=== PATIENT | female | born 1945 | race African-American/Black ===

== ENCOUNTER 2019-07-25 16:41 | Emergency (ER) | payer OTHER ==
[2019-07-25 17:40] VITALS: TEMP 97.9; BMI 39.3
--- NOTE | 2019-07-25 18:04 | PDOC ---
History of Present Illness - General Chief Complaint: Blood Pressure Problem Stated Complaint: HYPERTENSION/HEADACHE Time Seen by Provider: 07/25/19 18:04 - History of Present Illness Initial Comments: 07/25/19 18:19 73 yo PMH HTN, HLD, CKD not on dialysis, rectal CA and rectal prolapse s/p resection in February 2019 w/ stoma, cataract surgery of left eye 6 years ago, presenting with elevated blood pressure. Reports that she went to see her GI on Saturday for some abdominal discomfort, discovered that her BP was elevated there. Afterwards, she began developing "all around my head" headache, 4/10, blurrier vision than her baseline. Developed nausea without vomiting today, and grew scared about a potential stroke, driving her to come to the ED. Denies CP, SOB, abd pain, fevers/chills. Past History - Past Medical History Allergies/Adverse Reactions: Allergies Allergy/AdvReac Type Severity Reaction Status Date / Time No Known Allergies Allergy Verified 07/25/19 17:37 - Psycho Social/Smoking Cessation Hx Smoking History: Never smoked Information on smoking cessation initiated: No Hx Alcohol Use: No Drug/Substance Use Hx: No Review of Systems - Review of Systems Comments:: 07/25/19 18:53 GENERAL/CONSTITUTIONAL: denies fever, chills, diaphoresis, generalized weakness , malaise, loss of appetite, weight change HEAD, EYES, EARS, NOSE AND THROAT: endorses increased blurry vision. Denies rhinorrhea, nasal congestion, throat pain, throat swelling, difficulty swallowing, mouth swelling, ear pain, eye pain NEUROLOGIC: endorses headache. Denies focal weakness or paresthesias, dizziness , unsteady gait, seizure, mental status changes, bladder or bowel incontinence CARDIOVASCULAR: denies chest pain, syncope, palpitations, irregular heart rate, lightheadedness, peripheral edema RESPIRATORY: denies cough, shortness of breath, dyspnea with exertion, orthopnea , wheezing, stridor, hemoptysis GASTROINTESTINAL: endorses nausea without vomiting. Denies abdominal pain, abdominal distension, diarrhea, constipation, melena, hematochezia GENITOURINARY: denies dysuria, frequency, urgency, hesitancy, hematuria, flank pain, genital pain MUSCULOSKELETAL: denies myalgia, arthralgia, joint swelling, back pain, neck pain SKIN: denies rash, itching, pallor HEMATOLOGIC/IMMUNOLOGIC: denies easy bleeding, easy bruising, lymphadenopathy, frequent infections ENDOCRINE: denies unexplained weight gain, unexplained weight loss, heat intolerance, cold intolerance PSYCHIATRIC: denies anxiety, depression, suicidal or homicidal ideation, hallucinations *Physical Exam - Vital Signs Last Vital Signs Temp Pulse Resp BP Pulse Ox 97.9 F 71 16 190/80 H 99 07/25/19 17:15 07/25/19 17:15 07/25/19 17:15 07/25/19 17:15 07/25/19 17:15 - Physical Exam 07/25/19 18:54 Gen: well-developed, well-nourished, NAD Neuro: AAOX4, CN II-XII intact, FTN intact, EOMI, PERRLA, 5/5 strength, SILT HEENT: atraumatic, normocephalic Neck: trachea midline, supple CV: regular rate, regular rhythm, aortic stenosis murmur Pulm: CTA b/l, no wheezing Abd: soft, non-distended, non-tender, stoma in place with normal brown stool MSK: full ROM, intact pulses Extr: no edema, no deformities Skin: warm, dry ED Treatment Course - LABORATORY CBC & Chemistry Diagram: 07/25/19 18:50 07/25/19 18:50 Medical Decision Making - Medical Decision Making 07/25/19 18:52 Elevated BP, no CP or SOB. R/o ACS and brain bleed. Likely dc for further management of blood pressure. - CBC, CMP - EKG, trop - CXR - Head CT 07/25/19 19:52 EKG normal sinus at 61 bpm, poor baseline quality, ND 184, QRS 92, QTc 436 07/25/19 20:05 Repeat BP 160/73 without intervention. 07/25/19 20:30 CXR without acute pathology. 07/25/19 20:43 Cr 1.8, most recent Cr from 02/08/2019 was 1.6. On 02/06/2019, was 2.2. Around her baseline. 07/25/19 21:27 CT head without bleed. Will dc for further outpatient management. Discharge - Discharge Information Problems reviewed: Yes Clinical Impression/Diagnosis: Elevated blood pressure reading Condition: Stable Disposition: HOME - Admission No - Follow up/Referral Referrals: Prasanna Mac MD [Primary Care Provider] - - Patient Discharge Instructions Patient Printed Discharge Instructions: DI for High Blood Pressure Additional Instructions: You were seen with high blood pressure. Your labs, EKG, chest X ray, and head CT were all without acute concerns. However, it is very important that you follow up with your primary care doctor within one week to discuss your blood pressure medications. Return to the ED if you develop worsening symptoms. - Post Discharge Activity
[2019-07-25 19:12] LABS: BASO % 0.6 % (0-2.0); HEMATOCRIT 32.9 % (32.4-45.2); HEMOGLOBIN 10.8 GM/dL (10.7-15.3); LYMPH % 30.9 % (8-40); MCH 25.5 pg (25.7-33.7); MCHC 32.7 g/dl (32.0-36.0); MEAN PLT VOLUME 8.8 fl (7.5-11.1); MONO % 7.9 % (3.8-10.2); NEUT % 54.6 % (42.8-82.8); PLATELET COUNT 202 K/MM3 (134-434); RBC 4.22 M/mm3 (3.60-5.2); RDW 14.9 % (11.6-15.6)
[2019-07-25 19:50] LABS: ALBUMIN 3.9 g/dl (3.4-5.0); ALK PHOS 90 U/L (45-117); ANION GAP 8 MMOL/L (8-16); BILIRUBIN,TOTAL 1.3 mg/dL (0.2-1); CALCIUM 9.4 mg/dL (8.5-10.1); CHLORIDE 106 mmol/L (98-107); CO2 26 mmol/L (21-32); CREATININE 1.8 mg/dL (0.55-1.3); POTASSIUM 4.8 mmol/L (3.5-5.1); SGOT/AST 13 U/L (15-37); SGPT/ALT 14 U/L (13-61); SODIUM 140 mmol/L (136-145); TOT PROT 7.2 g/dl (6.4-8.2)
[2019-07-25 19:51] LABS: BLOOD UREA NITROGEN 27.6 mg/dL (7-18); GLUCOSE,RANDOM 80 mg/dL (74-106)
--- NOTE | 2019-07-25 19:59 | PDOC ---
Documentation entered by Alex Morales SCRIBE, acting as scribe for Isela Hutson DO. Isela Hutson DO: This documentation has been prepared by the zack, Alex Morales SCRIBE, under my direction and personally reviewed by me in its entirety. I confirm that the documentation accurately reflects all work, treatment, procedures, and medical decision making performed by me. Attending Attestation - Resident Resident Name: Kira Caicedo - ED Attending Attestation I have performed the following: I have examined & evaluated the patient, The case was reviewed & discussed with the resident, I agree w/resident's findings & plan - HPI HPI: 07/25/19 18:44 The patient is a 73 year old female who presents to the emergency department for 3 days of headache and hypertension. Pt states she saw GI on Saturday () and while at the office her BP was in the 190s. Pt states she checked her BP today and it was in the 190s, prompting her arrival to the ED. The patient denies chest pain, shortness of breath. Denies fever, chills, cough, nausea, vomiting, diarrhea and constipation. Allergies: NKDA PCP:Dr. Mac - Physicial Exam PE: 07/25/19 18:44 Agree with resident exam. - Medical Decision Making 07/25/19 19:56 73-year-old female for blood pressure check with varying symptoms now currently asymptomatic Plan for EKG, chest x-ray, CT scan of the brain as well as labs to rule out endorgan damage We will plan for DC to follow-up with primary care pending results Most recent blood pressure is 160/73.
[2019-07-25 20:43] VITALS: BP 164/72; PULSE 69
--- NOTE | 2019-07-26 12:07 | EKG ---
Test Reason : Blood Pressure : / mmHG Vent. Rate : 061 BPM Atrial Rate : 061 BPM P-R Int : 184 ms QRS Dur : 092 ms QT Int : 434 ms P-R-T Axes : 021 -23 009 degrees QTc Int : 436 ms POOR DATA QUALITY, INTERPRETATION MAY BE ADVERSELY AFFECTED NORMAL SINUS RHYTHM NONSPECIFIC INTRAVENTRICULAR CONDUCTION DEFECT NO PREVIOUS ECGS AVAILABLE Confirmed by CORI DICKINSON MD ([id number]) on 07/26/2019 12:07:11 PM Referred By: Confirmed By:CORI DICKINSON MD
== END 2019-07-25 21:45 | disposition home or self-care (01) ==
LOC: JER 16:41
DX: I10 Essential (primary) hypertension (principal); I12.9 Hypertensive chronic kidney disease with stage 1 through stage 4 chronic kidney disease, or unspecified chronic kidney disease; N18.9 Chronic kidney disease, unspecified; E78.5 Hyperlipidemia, unspecified; Z98.890 Other specified postprocedural states
CPT/HCPCS: 36415; 70450-TC; 71045-TC-FY; 80053; 82550; 82553; 84484; 85025; 93005; 93010; 99285-25